=== PATIENT | male | born 1950 | race Hispanic/Latino ===

== ENCOUNTER → 2019-01-08 | Outpatient (CLI) | payer BC, OTHER | END | disposition home or self-care (01) | LOC: SLP 20:24 | PROVIDERS: ATTEND Internal Medicine | DX: G47.33 Obstructive sleep apnea (adult) (pediatric) (principal); I10 Essential (primary) hypertension | CPT/HCPCS: 95810; 95811 ==

== ENCOUNTER → 2019-06-16 | Outpatient (CLI) | payer OTHER | END | disposition home or self-care (01) | LOC: OIH 10:35 | PROVIDERS: ATTEND Internal Medicine | DX: I10 Essential (primary) hypertension (principal); M47.819 Spondylosis without myelopathy or radiculopathy, site unspecified | CPT/HCPCS: 71046 ==

== ENCOUNTER → 2019-07-11 | Outpatient (CLI) | payer OTHER ==
[~2019-07-11] VITALS: Ht 167.6 cm; Wt 139.3 kg
[~2019-07-11] MED LIST: AMLO5TAB9 PO; ASPI-1181 PO; CARV25TA PO; CEFAZOLIN SODIUM 1 GM VIAL IVP SCH; FURO40TA5 PO; HYDR100T27 PO; METF-444 PO; PRAV40TA3 PO; SPIR25TA6 PO; TERA10CA4 PO
[2019-07-11 13:05] VITALS: BP 203/78
[2019-07-11 13:50] LABS: APPEARANCE,URINE Clear (CLEAR); BILIRUBIN,URINE Negative (NEGATIVE); COLOR,URINE Yellow (YELLOW); GLUCOSE, URINE (UA) Negative (NEGATIVE); KETONES,URINE Negative (NEGATIVE); LEUKOCYTE ESTERASE ,URINE Negative (NEGATIVE); NITRATE,URINE Negative (NEGATIVE); OCCULT BLOOD,URINE Trace (NEGATIVE); PH,URINE 6.5 (5.0-8.0); PROTEIN,URINE Trace mg/dL (NEGATIVE)
[2019-07-11 14:07] LABS: INR 0.92 (0.85-1.15); PROTHROMBIN TIME 9.7 SEC (9.6-11.6)
[2019-07-11 14:20] LABS: BACTERIA,URINE Rare /HPF (None Seen); SQUAMOUS EPITHELIAL CELL,UR 0-2 /HPF (0-2); WBC,URINE None Seen /HPF (0-1)
[2019-07-11 15:15] VITALS: BP 160/72
--- NOTE | 2019-07-11 15:22 | NUR ---
NO BLOOD- DUE TO SCIENTOLOGY Addendum: 07/11/19 at 1526 by PRATIK PORTER RN RN Amended: Links added.
--- NOTE | 2019-07-11 18:48 | NUR ---
ADVISED DOCTOR JOEL ABOUT PT NOT ACCEPTING BLOOD, PER DOCTOR JOEL HE WANTED ME TO INFORM PT ABOUT PLACING A TORNIQUETE DURING PROCEDURE TO HELP DECREASE LOSS OF BLOOD, CALLED MR. VALENTINE AND ADVISED HIM OF WHAT DOCTOR JOEL POSSIBLY APPLYING A TORNIQUETE, NO CONCERNS VOICED.
== END | disposition home or self-care (01) ==
LOC: DAH 10:00 → EDSTATUS 07-14 10:30
PROVIDERS: ATTEND Orthopaedic Surgery
DX: M17.11 Unilateral primary osteoarthritis, right knee (principal)
CPT/HCPCS: 36415; 81001; 85610; 87641